=== PATIENT | female | born 1955 | race American Indian/Alaskan Native ===

== ENCOUNTER 2017-01-09 12:27 | Emergency (ER) | payer SELFPAY ==
[2017-01-09 12:55] VITALS: BP 158/106
== END 2017-01-09 16:05 | disposition home or self-care (01) ==
LOC: ED 12:27
DX: L03.012 Cellulitis of left finger (principal); M19.90 Unspecified osteoarthritis, unspecified site; Z96.652 Presence of left artificial knee joint; Z88.5 Allergy status to narcotic agent; Z88.0 Allergy status to penicillin

== ENCOUNTER 2017-09-28 19:44 | Emergency (ER) | payer SELFPAY | END 2017-09-28 20:00 | disposition left against medical advice (07) | LOC: ED 19:44 | DX: M25.562 Pain in left knee (principal); Z53.21 Procedure and treatment not carried out due to patient leaving prior to being seen by health care provider ==